=== PATIENT | female | born 2005 | race Caucasian/White ===

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

== ENCOUNTER 2024-01-22 20:22 | Emergency (ER) | payer OTHER ==
[~2024-01-22] VITALS: Ht 165.1 cm; Wt 53.5 kg
[~2024-01-22 20:22] MED LIST: AMOX500C25 PO; IBUP-1842 PO
[2024-01-22 20:52] VITALS: BP 119/65; PULSE 111; RESP 20; TEMP 99.6; O2SAT 100
[2024-01-22 23:29] LABS: FLU A ANTIGEN negative (NEGATIVE); FLU B ANTIGEN negative (NEGATIVE)
[2024-01-22 23:44] LABS: BASOPHILS % (AUTO) 0.3 % (0.0-2.0); EOSINOPHILS % (AUTO) 0.1 % (0.0-4.0); HEMATOCRIT 40.3 % (36-48); HEMOGLOBIN 13.5 g/dL (12.0-16.0); LYMPHOCYTES # (AUTO) 0.7 K/uL (2.5-16.5); LYMPHOCYTES % (AUTO) 8.7 % (20.5-51.1); MEAN CORPUSCULAR HEMOGLOBIN 31 pg (27-31); MEAN CORPUSCULAR HGB CONC 34 g/dL (33-37); MEAN CORPUSCULAR VOLUME 93.5 fL (80-94); MONOCYTES # (AUTO) 0.6 K/uL (0.8-1.0); MONOCYTES % (AUTO) 7.7 % (1.7-9.3); NEUTROPHILS # (AUTO) 6.7 K/uL (1.8-7.7); PLATELET COUNT (AUTO) 214 K/uL (140-450); RED BLOOD CELL COUNT(AUTO) 4.31 MIL/uL (4.20-5.40); RED CELL DISTRIBUTION WIDTH 12.5 % (11.6-13.7); WHITE BLOOD COUNT (AUTO) 8.1 K/uL (4.5-11.0)
[2024-01-23] LABS: NEUTROPHILS % (AUTO) 83.2 % (42.2-75.2)
[2024-01-23 00:02] LABS: ANION GAP 11.9 (8-16); CALCIUM 8.8 mg/dL (8.5-10.1); CARBON DIOXIDE 29.5 mmol/L (21-32); CREATININE 0.8 mg/dL (0.6-1.3); POTASSIUM 3.4 mmol/L (3.5-5.1)
[2024-01-23] MEDS: NACL 0.9% 1,000 ML IV ONE (00:19)
[2024-01-23] MEDS: MORPHINE SULFATE 4 MG/ML SYR IVP ONE ×2 (00:31→03:33)
[2024-01-23 01:55] LABS: BILIRUBIN,URINE NEGATIVE (NEGATIVE); BLOOD, URINE 1+ (NEGATIVE); COLOR,URINE YELLOW (YELLOW); LEUKOCYTE ESTERASE ,URINE 2+ (NEGATIVE); NITRITE, URINE NEGATIVE (NEGATIVE); PROTEIN,URINE TRACE (NEGATIVE); UGLUCOSE NEGATIVE (NEGATIVE); UROBILINOGEN,URINE 0.2 EU/dL (0.2 - 1)
[2024-01-23 02:03] LABS: APPEARANCE,URINE SLIGHTLY HAZY (CLEAR)
[2024-01-23 02:06] LABS: BACTERIA,URINE 3+ /HPF (None Seen); RBC,URINE 0-5 /HPF (0-5); SQUAMOUS EPITHELIAL CELL,UR 4-10 (MOD) /LPF (0-3 (FEW)); WBC,URINE >25 (MANY) /HPF (0-5)
[2024-01-23] MEDS ORDERED: cefTRIAXone 1,000 MG VIAL ONE (03:06)
[2024-01-23] MEDS ORDERED: NAPR-337 PO (03:50)
[2024-01-23] MEDS ORDERED: CIPR500T4 PO (03:50)
[2024-01-23 04:04] VITALS: BP 113/70; PULSE 90; RESP 20; TEMP 99.6; O2SAT 100
== END 2024-01-23 04:50 | disposition home or self-care (01) ==
LOC: MED 20:22
DX: N39.0 Urinary tract infection, site not specified (principal); Z20.822 Contact with and (suspected) exposure to COVID-19; Z79.899 Other long term (current) drug therapy
CPT/HCPCS: 36415; 80048; 81001; 82948; 85025; 87040; 87086; 87186; 87426; 87804; 96361; 96365; 96375; 96376; 99284; J0696; J2270; J7030

== ENCOUNTER 2024-01-25 00:58 | Emergency (ER) | payer OTHER ==
[~2024-01-25] VITALS: Ht 165.1 cm; Wt 56.2 kg
[~2024-01-25 00:58] MED LIST changes: +CIPR500T4 PO; +NAPR-337 PO
[2024-01-25 01:03] VITALS: BP 103/68; PULSE 101; RESP 20; TEMP 98.1; O2SAT 99
[2024-01-25 01:14] VITALS: BP 103/68; PULSE 101; RESP 20; TEMP 98.1
[2024-01-25 01:19] VITALS: O2SAT 98
[2024-01-25 01:39] LABS: BASOPHILS % (AUTO) 0.6 % (0.0-2.0); EOSINOPHILS % (AUTO) 0.1 % (0.0-4.0); HEMATOCRIT 36.8 % (36-48); HEMOGLOBIN 12.6 g/dL (12.0-16.0); LYMPHOCYTES # (AUTO) 1.1 K/uL (2.5-16.5); LYMPHOCYTES % (AUTO) 15.5 % (20.5-51.1); MEAN CORPUSCULAR HEMOGLOBIN 32 pg (27-31); MEAN CORPUSCULAR HGB CONC 34 g/dL (33-37); MONOCYTES # (AUTO) 0.8 K/uL (0.8-1.0); MONOCYTES % (AUTO) 11.4 % (1.7-9.3); NEUTROPHILS # (AUTO) 5.4 K/uL (1.8-7.7); NEUTROPHILS % (AUTO) 72.4 % (42.2-75.2); PLATELET COUNT (AUTO) 211 K/uL (140-450); RED BLOOD CELL COUNT(AUTO) 3.95 MIL/uL (4.20-5.40); RED CELL DISTRIBUTION WIDTH 12.7 % (11.6-13.7); WHITE BLOOD COUNT (AUTO) 7.4 K/uL (4.5-11.0)
[2024-01-25] MEDS: NACL 0.9% 1,000 ML IV ONE (01:39)
[2024-01-25] MEDS: KETOROLAC 30 MG/ML VIAL IVP ONE (01:46)
[2024-01-25 01:56] LABS: ANION GAP 10.7 (8-16); CALCIUM 8.6 mg/dL (8.5-10.1); CARBON DIOXIDE 28.1 mmol/L (21-32); CREATININE 0.7 mg/dL (0.6-1.3); POTASSIUM 3.8 mmol/L (3.5-5.1)
[2024-01-25 02:14] LABS: APPEARANCE,URINE CLEAR (CLEAR); BILIRUBIN,URINE 1+ (NEGATIVE); BLOOD, URINE 1+ (NEGATIVE); COLOR,URINE YELLOW (YELLOW); LEUKOCYTE ESTERASE ,URINE 1+ (NEGATIVE); NITRITE, URINE NEGATIVE (NEGATIVE); PROTEIN,URINE 2+ (NEGATIVE); UGLUCOSE NEGATIVE (NEGATIVE); UROBILINOGEN,URINE 0.2 EU/dL (0.2 - 1)
[2024-01-25 02:17] LABS: ICTOTEST POSITIVE (NEGATIVE)
[2024-01-25 02:18] LABS: BACTERIA,URINE >30 (MANY) /HPF (None Seen); MUCUS,URINE 1+ /LPF (None Seen); SQUAMOUS EPITHELIAL CELL,UR 4-10 (MOD) /LPF (0-3 (FEW))
[2024-01-25] MEDS ORDERED: cefTRIAXone 1,000 MG VIAL ONE (02:28)
[2024-01-25] MEDS: ONDANSETRON 4 MG/2 ML VIAL IVP ONE (02:32)
[2024-01-25 05:16] VITALS: O2SAT 98
== END 2024-01-25 05:51 | disposition home or self-care (01) ==
LOC: MED 00:58
DX: N12 Tubulo-interstitial nephritis, not specified as acute or chronic (principal); N39.0 Urinary tract infection, site not specified; Z79.899 Other long term (current) drug therapy
CPT/HCPCS: 36415; 80048; 81001; 81025; 85025; 87086; 96361; 96365; 96375; 99284; J0696; J1885; J2405; J7030